=== PATIENT | male | born 1990 | race African-American/Black ===

== ENCOUNTER 2017-10-03 23:22 | Emergency (ER) | payer SELFPAY ==
[~2017-10-03] VITALS: Ht 180.3 cm; Wt 110.3 kg
[~2017-10-03 23:22] MED LIST: no meds
[2017-10-03 23:38] VITALS: BP 166/111
== END 2017-10-03 23:40 | disposition left against medical advice (07) ==
LOC: EME → EDBD 23:22 → EME 23:40
DX: S61.412A Laceration without foreign body of left hand, initial encounter (principal); W26.8XXA Contact with other sharp object(s), not elsewhere classified, initial encounter; Z53.21 Procedure and treatment not carried out due to patient leaving prior to being seen by health care provider

== ENCOUNTER 2017-11-02 19:07 | Emergency (ER) | payer SELFPAY ==
[~2017-11-02] VITALS: Ht 182.9 cm
[2017-11-02 19:44] VITALS: BP 155/86
== END 2017-11-02 19:45 ==
LOC: EME 19:07
DX: Z02.89 Encounter for other administrative examinations (principal); T50.991A Poisoning by other drugs, medicaments and biological substances, accidental (unintentional), initial encounter
CPT/HCPCS: 99281; 99283